=== PATIENT | female | born 1940 | race American Indian/Alaskan Native ===

== ENCOUNTER 2020-08-25 04:11 | Emergency (ER) | payer MEDICARE ==
--- NOTE | 2020-08-25 06:23 | Emergency Department Report ---
ED Fall HPI - General Chief Complaint: Fall Stated Complaint: Fall Time Seen by Provider: 08/25/20 06:05 Source: patient Mode of arrival: Ambulatory - History of Present Illness Initial Comments: 79-year-old female, history of CVA with baseline left-sided weakness, presents to ED following fall at home. Patient states she had 1 fall yesterday morning, and another earlier this morning. Patient states both times she fell while walking back to her bed from her bedside commode. Patient states she tripped and fell. She denies any preceding dizziness or weakness prior to the fall. Patient denies any new numbness or weakness. She denies LOC. Patient denies any other pain. Patient states her PCP is arranging an MRI due to her recent multiple falls. Patient reports history of multiple falls since her CVA. Patient reports she lives with her sister. MD Complaint: fall -: This morning Fall From: standing Fall Witnessed: no Place Fall Occurred: home Loss of Consciousness: none Prolonged Down Time?: no Symptoms Prior to Fall: none Severity: mild Context: tripped/slipped Associated Symptoms: denies: headache, neck pain, numbness, weakness, chest paint, shortness of breath, abdominal pain, lightheaded, vertigo, confusion - Related Data Home Medications Medication Instructions Recorded Confirmed Last Taken Atorvastatin (Nf) [Lipitor] 10 mg PO QHS 02/07/13 02/07/13 Unknown Esomeprazole Magnesium [NexIUM] 40 mg PO QDAY 02/07/13 02/07/13 Unknown Levothyroxine [Synthroid] 50 mcg PO QAM 02/07/13 02/07/13 Unknown Meclizine [Antivert] 25 mg PO TID PRN 02/07/13 02/07/13 Unknown Metoprolol Xl [Metoprolol 25 mg PO QDAY 02/07/13 02/07/13 Unknown SUCCINATE ER TAB] Sertraline [Zoloft] 25 mg PO QDAY 02/07/13 02/07/13 Unknown Tolterodine Tartrate [Detrol] 2 mg PO BID 02/07/13 02/07/13 Unknown hydroCHLOROthiazide [HCTZ] 25 mg PO QDAY 02/07/13 02/07/13 Unknown Previous Rx's Medication Instructions Recorded Last Taken Type Aspirin [Aspirin BABY CHEW TAB] 81 mg PO QDAY #30 tab.chew 02/09/13 Unknown Rx Allergies Allergy/AdvReac Type Severity Reaction Status Date / Time No Known Allergies Allergy Verified 02/08/13 01:57 ED Review of Systems ROS: Stated complaint: LEFT SIDE WEAKNESS Other details as noted in HPI Comment: All other systems reviewed and negative Constitutional: denies: fever Respiratory: denies: shortness of breath Cardiovascular: denies: chest pain Gastrointestinal: denies: vomiting, diarrhea Neurological: denies: headache, weakness, numbness ED Past Medical Hx - Past Medical History Hx Hypertension: Yes Hx CVA: Yes - Surgical History Past Surgical History?: No - Social History Smoking Status: Never Smoker Substance Use Type: None - Medications Home Medications: Home Medications Medication Instructions Recorded Confirmed Last Taken Type Atorvastatin (Nf) [Lipitor] 10 mg PO QHS 02/07/13 02/07/13 Unknown History Esomeprazole Magnesium [NexIUM] 40 mg PO QDAY 02/07/13 02/07/13 Unknown History Levothyroxine [Synthroid] 50 mcg PO QAM 02/07/13 02/07/13 Unknown History Meclizine [Antivert] 25 mg PO TID PRN 02/07/13 02/07/13 Unknown History Metoprolol Xl [Metoprolol 25 mg PO QDAY 02/07/13 02/07/13 Unknown History SUCCINATE ER TAB] Sertraline [Zoloft] 25 mg PO QDAY 02/07/13 02/07/13 Unknown History Tolterodine Tartrate [Detrol] 2 mg PO BID 02/07/13 02/07/13 Unknown History hydroCHLOROthiazide [HCTZ] 25 mg PO QDAY 02/07/13 02/07/13 Unknown History Aspirin [Aspirin BABY CHEW TAB] 81 mg PO QDAY #30 tab.chew 02/09/13 Unknown Rx ED Physical Exam - General Limitations: No Limitations General appearance: alert, in no apparent distress - Head Head exam: Present: atraumatic, normocephalic - Eye Eye exam: Present: normal appearance - ENT ENT exam: Present: mucous membranes moist - Neck Neck exam: Present: normal inspection - Respiratory Respiratory exam: Present: normal lung sounds bilaterally. Absent: respiratory distress - Cardiovascular Cardiovascular Exam: Present: regular rate, normal rhythm - GI/Abdominal GI/Abdominal exam: Present: soft. Absent: distended, tenderness - Extremities Exam Extremities exam: Present: normal inspection - Neurological Exam Neurological exam: Present: alert, oriented X3, motor sensory deficit (Baseline left-sided weakness on exam; strength 4/5 in left upper extremity and left lower extremity) - Psychiatric Psychiatric exam: Present: normal affect, normal mood - Skin Skin exam: Present: warm, dry, intact, normal color ED Course Vital Signs 08/25/20 08/25/20 08/25/20 04:11 04:26 04:30 Temperature 97.1 F L Pulse Rate 62 59 L Respiratory 18 14 Rate Blood Pressure 121/64 121/70 O2 Sat by Pulse 100 96 94 Oximetry 08/25/20 08/25/20 08/25/20 05:00 05:16 05:30 Temperature Pulse Rate 59 L 60 61 Respiratory 15 13 15 Rate Blood Pressure 118/75 100/60 114/63 O2 Sat by Pulse 95 95 96 Oximetry 08/25/20 08/25/20 08/25/20 05:46 06:00 06:30 Temperature Pulse Rate 59 L 55 L 52 L Respiratory 15 13 11 L Rate Blood Pressure 99/59 117/65 119/69 O2 Sat by Pulse 93 94 97 Oximetry 08/25/20 08/25/20 08/25/20 07:00 07:15 08:16 Temperature Pulse Rate 58 L 55 L 52 L Respiratory 13 14 18 Rate Blood Pressure 125/73 126/78 114/63 O2 Sat by Pulse 94 94 98 Oximetry ED Medical Decision Making - Radiology Data Radiology results: report reviewed (Spoke with Dr. Mendoza, radiologist to read the head CT. States impression should read "...prominent AREA low- attenuation..."), image reviewed - Medical Decision Making 79-year-old female, history of CVA with baseline left-sided weakness, presents to ED following fall at home. Patient states she had 1 fall yesterday morning, and another earlier this morning. Patient states both times she fell while walking back to her bed from her bedside commode. Patient states she tripped and fell. She denies any preceding dizziness or weakness prior to the fall. Patient denies any new numbness or weakness. She denies LOC. Patient denies any other pain. Patient states her PCP is arranging an MRI due to her recent multiple falls. Patient reports history of multiple falls since her CVA. Patient reports she lives with her sister. CT head is negative for any acute findings. Vital signs are stable. Patient advised to follow-up with her PCP next week. She will be discharged at this time. Outpatient follow-up advised, return precautions given. Critical care attestation.: If time is entered above; I have spent that time in minutes in the direct care of this critically ill patient, excluding procedure time. ED Disposition Clinical Impression: Fall Disposition: [id number] PSY HOSP/PSY UNIT Is pt being admited?: No Condition: Stable Referrals: DALILA HERNANDEZ MD [Primary Care Provider] - 3-5 Days PRIMARY CAREMD [Referring] - 3-5 Days Time of Disposition: 08:18
--- NOTE | 2020-08-25 07:59 | Cat Scan Report ---
CT HEAD WITHOUT CONTRAST INDICATION / CLINICAL INFORMATION: multiple falls, hx CVA. TECHNIQUE: All CT scans at this location are performed using CT dose reduction for ALARA by means of automated e xposure control. COMPARISON: None available. FINDINGS: There are scattered areas of low-attenuation in the periventricular and central white matter. No acut e intracranial hemorrhage. Ventricles are normal in size without midline shift or mass effect. Visual ized sinuses are clear some low. Low attenuation seen along the vertex and left frontal white matter. ADDITIONAL FINDINGS: None. IMPRESSION: 1. No acute hemorrhage. 2. Areas of low-attenuation in the central and peripheral white matter suggesting nonspecific white m atter change. Prominent air low-attenuation left frontal white matter is seen on axial image 24. If t here is concern for acute ischemic change/stroke MRI is recommended with diffusion. Signer Name: Zi Carrillo MD Signed: 08/25/2020 7:54 AM Workstation Name: [id number]
[2020-08-25 08:25] VITALS: BP 114/63
== END 2020-08-25 09:03 ==
LOC: ED 04:11
DX: R53.1 Weakness (principal); I10 Essential (primary) hypertension; Z86.73 Personal history of transient ischemic attack (TIA), and cerebral infarction without residual deficits; Z79.899 Other long term (current) drug therapy; W19.XXXA Unspecified fall, initial encounter; Y93.89 Activity, other specified; Y92.89 Other specified places as the place of occurrence of the external cause; Y99.8 Other external cause status
CPT/HCPCS: 70450